=== PATIENT | male | born 1990 | race Caucasian/White ===

== ENCOUNTER 2017-07-08 20:18 | Emergency (ER) | payer BC, OTHER ==
[2017-07-08] MEDS: AUGMENTIN 875 MG TAB PO (22:30)
[2017-07-08] MEDS: predniSONE 20 MG TAB PO (22:30)
[2017-07-08] MEDS ORDERED: NORCO, ANEXSIA 5/325MG TABLET (HYDROcodone/ACETAMINOPHEN) PO (23:00)
[2017-07-08] MEDS: IBUPROFEN 600 MG TAB PO (23:11)
[2017-07-08] MEDS: ONDANSETRON 4 MG ORAL DISINTEGRATING TAB (Q0162 PER 1MG) PO (23:16)
== END 2017-07-09 00:30 | disposition short-term general hospital (02) ==
LOC: M ED 07-09 00:30
DX: S02.32XA Fracture of orbital floor, left side, initial encounter for closed fracture (principal); X58.XXXA Exposure to other specified factors, initial encounter; Y92.9 Unspecified place or not applicable; Y93.89 Activity, other specified; Y99.9 Unspecified external cause status
CPT/HCPCS: Q0162